=== PATIENT | female | born 2000 | race Caucasian/White ===

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

== ENCOUNTER 2024-03-04 04:37 | Inpatient (IN) | payer OTHER ==
[~2024-03-04] VITALS: Ht 157.5 cm; Wt 85.4 kg
[~2024-03-04 04:37] MED LIST: ESCI20TA87 PO
[2024-03-04 05:06] LABS: BASOPHILS % (AUTO) 0.6 % (0.0-2.0); EOSINOPHILS % (AUTO) 0.4 % (1.0-6.0); HEMATOCRIT 42.2 % (36-46); LYMPHOCYTES % (AUTO) 18.4 % (22.0-44.0); MEAN CORPUSCULAR HEMOGLOBIN 28.7 pg (26.0-34.0); MEAN CORPUSCULAR HGB CONC 33.2 G/dL (31.0-37.0); MEAN CORPUSCULAR VOLUME 86 fL (80-100); MONOCYTES # (AUTO) 0.7 K/uL (0.1-1.0); NEUTROPHILS # (AUTO) 8.2 K/uL (1.8-7.7); NEUTROPHILS % (AUTO) 74.6 % (40.0-70.0); PLATELET COUNT (AUTO) 370 K/uL (150-450); RED BLOOD CELL COUNT(AUTO) 4.88 MIL/uL (4.00-5.20); RED CELL DISTRIBUTION WIDTH 14.1 % (11.5-14.5)
[2024-03-04 05:17] LABS: SALICYLATE 1.4 mg/dL (2.8-20.0)
[2024-03-04 05:24] LABS: ALCOHOL, BLOOD (SERUM) 212 mg/dL (0-10)
[2024-03-04 05:39] LABS: ANION GAP 14 mmol/L (8-16); CALCIUM, TOTAL 8.9 mg/dL (8.8-10.5); CARBON DIOXIDE 23 mmol/L (22-29); CHLORIDE 107 mmol/L (98-107); CREATININE 0.76 mg/dL (0.60-1.30); GLOMERULAR FILTR. RATE CALC > 60 mL/min (>60); GLUCOSE,RANDOM 131 mg/dL (70-110); POTASSIUM 3.4 mmol/L (3.5-5.1); SODIUM SERUM 144 mmol/L (136-145); UREA NITROGEN, BLOOD 8 mg/dL (7-18)
[2024-03-04 05:54] LABS: ACETAMINOPHEN < 2 mcg/mL (10-30)
[2024-03-04] MEDS: POTASSIUM CHLORIDE 20 MEQ ER TABLET PO ONE (06:01)
[2024-03-04 07:12] LABS: COVID AG,FIA SOURCE NASAL SWAB
[2024-03-04 07:29] LABS: SARS-COV2 (COVID) ANTIGEN,FIA Negative (Negative)
[2024-03-04] MEDS ORDERED: LORazepam 2 MG TABLET PO PRN (09:15)
[2024-03-04] MEDS ORDERED: ChlordiazePOXIDE HCL 25 MG CAPSULE PO PRN (16:45)
[2024-03-04 16:46] VITALS: BP 91/54; PULSE 78; RESP 18; TEMP 98; O2SAT 99
[2024-03-04 19:46] VITALS: BP 98/65; PULSE 81; RESP 18; TEMP 98.1; O2SAT 100
[2024-03-04] MEDS: QUEtiapine FUMARATE 100 MG TABLET PO PRN (21:45)
[2024-03-04] MEDS: ZOLPIDEM TARTRATE 10 MG TABLET PO PRN (21:45)
[2024-03-04 21:56] VITALS: RESP 18
[2024-03-04 23:46] VITALS: BP 105/60; PULSE 80; RESP 18; TEMP 97.8; O2SAT 99
[2024-03-05 03:46] VITALS: BP_SYST 101; BP_SYST 121; BP_DIAS 62; BP_DIAS 64; PULSE 82; PULSE 84; RESP 18; TEMP 97.5; TEMP 98.1; O2SAT 98
[2024-03-05] MEDS ORDERED: GuaiFENesin/D-METHORPHAN [SUGAR-FREE] 200-20MG/10 ML SYRUP UDCUP PO PRN (07:00)
[2024-03-05] MEDS ORDERED: MAG HYDROX/ALUMINUM HYD/SIMETH ES 30 ML SUSPENSION UDCUP PO PRN (07:00)
[2024-03-05] MEDS ORDERED: ChlordiazePOXIDE HCL 25 MG CAPSULE PO PRN ×2 (07:00→18:30)
[2024-03-05] MEDS ORDERED: CloNIDine HCL 0.1 MG TABLET PO PRN (07:00)
[2024-03-05] MEDS ORDERED: ACETAMINOPHEN 325 MG TABLET PO PRN (07:00)
[2024-03-05] MEDS ORDERED: PETROLATUM,WHITE 28 GM JELLY TP PRN (07:00)
[2024-03-05] MEDS ORDERED: ONDANSETRON HCL 4 MG TABLET PO PRN (07:00)
[2024-03-05] MEDS ORDERED: LOPERAMIDE HCL 2 MG CAPSULE PO PRN (07:00)
[2024-03-05] MEDS ORDERED: DOCUSATE SODIUM 100 MG CAPSULE PO PRN (07:00)
[2024-03-05] MEDS ORDERED: MAGNESIUM HYDROXIDE SUSPENSION 30 ML UDCUP PO PRN (07:00)
[2024-03-05] MEDS ORDERED: ALBUTEROL SULFATE HFA 90 MCG/PUFF 8 GM INHALER IH PRN (07:00)
[2024-03-05] MEDS ORDERED: IBUPROFEN 400 MG TABLET PO PRN (07:00)
[2024-03-05 08:05] VITALS: BP 123/72; PULSE 83; RESP 17; TEMP 98.4
[2024-03-05] MEDS: ESCITALOPRAM OXALATE 10 MG TABLET PO SCH (08:40)
[2024-03-05] MEDS: ChlordiazePOXIDE HCL 25 MG CAPSULE PO SCH (08:40)
[2024-03-05] MEDS: NICOTINE 14 MG/24 HOUR PATCH TD PRN (12:19)
[2024-03-05 18:58] LABS: APPEARANCE,URINE CLEAR (CLEAR); BILIRUBIN,URINE NEGATIVE (NEGATIVE); COLOR,URINE COLORLESS (YELLOW); GLUCOSE, URINE (UA) NEGATIVE (NEGATIVE); KETONES,URINE NEGATIVE (NEGATIVE); LEUKOCYTE ESTERASE ,URINE NEGATIVE (NEGATIVE); NITRATE,URINE NEGATIVE (NEGATIVE); OCCULT BLOOD,URINE NEGATIVE (NEGATIVE); PROTEIN,URINE NEGATIVE (NEGATIVE); SPECIFIC GRAVITIY, URINE 1.004 (1.003-1.030); UROBILINOGEN,URINE <=1.0 mg/dL (<=1.0)
[2024-03-05 19:04] LABS: AMPHET/METH SCREEN,URINE NEGATIVE (NEGATIVE); BARBITURATE SCREEN, URINE NEGATIVE (NEGATIVE); BENZODIAZEPINES SCREEN,URINE NEGATIVE (NEGATIVE); CANNABINOID SCREEN,URINE NEGATIVE (NEGATIVE); COCAINE SCREEN,URINE NEGATIVE (NEGATIVE); METHADONE SCREEN, URINE NEGATIVE (NEGATIVE); OPIATE SCREEN,URINE NEGATIVE (NEGATIVE); PHENCYCLIDINE SCREEN,URINE NEGATIVE (NEGATIVE)
[2024-03-05 19:06] LABS: ALCOHOL, URINE DRUG SCREEN NEGATIVE (NEGATIVE)
[2024-03-05 20:00] VITALS: BP 128/70; PULSE 70; RESP 18; TEMP 98; O2SAT 98
[2024-03-05 20:04] VITALS: BP 121/74; PULSE 18; RESP 18; TEMP 97.9
[2024-03-05 22:37] VITALS: BP 121/74; PULSE 72; RESP 18; TEMP 97.9; O2SAT 97
[2024-03-06 02:00] VITALS: BP 130/74; PULSE 70; RESP 18; TEMP 97.8; O2SAT 98
[2024-03-06] MEDS: NICOTINE 21 MG/24 HOUR PATCH TD PRN (05:56)
[2024-03-06 06:00] VITALS: BP 128/70; PULSE 80; RESP 18; TEMP 97.6; O2SAT 97
[2024-03-06 06:28] LABS: HEMOGLOBIN A1C 5.3 % (3.8-5.6)
[2024-03-06 06:46] LABS: THYROID STIMULATING HORMONE 3.19 uIU/mL (0.36-3.74)
[2024-03-06 08:09] LABS: CHOL/HDL RATIO 3.7 (3.9-5.7)
[2024-03-06 09:40] VITALS: BP 110/60; PULSE 80; RESP 16; TEMP 98.7
[2024-03-06 09:41] VITALS: BP 110/60; PULSE 80; RESP 16; TEMP 98.7; O2SAT 98
[2024-03-07] MEDS ORDERED: ChlordiazePOXIDE HCL 10 MG CAPSULE PO PRN (07:00)
[2024-03-07] MEDS ORDERED: ChlordiazePOXIDE HCL 10 MG CAPSULE PO SCH (09:00)
[2024-03-08] MEDS ORDERED: ChlordiazePOXIDE HCL 10 MG CAPSULE PO PRN (07:00)
== END 2024-03-06 19:16 | disposition home or self-care (01) | DRG 885 ==
LOC: EMS 04:38 → 3EI 14:35
PROVIDERS: ADMIT Psychiatry & Neurology Child & Adolescent Psychiatry; ATTEND Psychiatry & Neurology Child & Adolescent Psychiatry
DX: F33.2 Major depressive disorder, recurrent severe without psychotic features (principal); F10.139 Alcohol abuse with withdrawal, unspecified; R45.851 Suicidal ideations; E66.9 Obesity, unspecified; E87.6 Hypokalemia; Z20.822 Contact with and (suspected) exposure to COVID-19; F41.9 Anxiety disorder, unspecified; Y90.9 Presence of alcohol in blood, level not specified; F90.9 Attention-deficit hyperactivity disorder, unspecified type; T46.5X1A Poisoning by other antihypertensive drugs, accidental (unintentional), initial encounter; Y92.89 Other specified places as the place of occurrence of the external cause; Z88.1 Allergy status to other antibiotic agents; Z68.34 Body mass index [BMI] 34.0-34.9, adult
CPT/HCPCS: 80048; 80061; 80307; 81003; 83036; 84132; 84443; 84703; 85025; 93005; 99285; G0480; G0481

== ENCOUNTER 2024-03-17 06:06 | Inpatient (IN) | payer OTHER, MEDICAID ==
[~2024-03-17] VITALS: Ht 157.5 cm; Wt 84.9 kg
[2024-03-17] MEDS: LORazepam 1 MG TABLET PO ONE (06:57)
[2024-03-17 07:29] LABS: BASOPHILS % (AUTO) 0.8 % (0.0-2.0); EOSINOPHILS % (AUTO) 0.4 % (1.0-6.0); HEMATOCRIT 40.7 % (36-46); HEMOGLOBIN 13.7 g/dL (12.0-16.0); LYMPHOCYTES # (AUTO) 1.7 K/uL (1.0-4.8); LYMPHOCYTES % (AUTO) 16.4 % (22.0-44.0); MEAN CORPUSCULAR HEMOGLOBIN 28.8 pg (26.0-34.0); MEAN CORPUSCULAR HGB CONC 33.5 G/dL (31.0-37.0); MEAN CORPUSCULAR VOLUME 86 fL (80-100); MONOCYTES # (AUTO) 0.7 K/uL (0.1-1.0); NEUTROPHILS # (AUTO) 7.6 K/uL (1.8-7.7); NEUTROPHILS % (AUTO) 75.4 % (40.0-70.0); PLATELET COUNT (AUTO) 400 K/uL (150-450); RED BLOOD CELL COUNT(AUTO) 4.73 MIL/uL (4.00-5.20); RED CELL DISTRIBUTION WIDTH 13.9 % (11.5-14.5); WHITE BLOOD COUNT (AUTO) 10.2 K/uL (4.5-11.0)
[2024-03-17 07:34] LABS: COVID AG,FIA SOURCE NASAL SWAB
[2024-03-17 07:37] LABS: ANION GAP 16 mmol/L (8-16); CALCIUM, TOTAL 8.9 mg/dL (8.8-10.5); CARBON DIOXIDE 20 mmol/L (22-29); CHLORIDE 104 mmol/L (98-107); CREATININE 0.93 mg/dL (0.60-1.30); GLOMERULAR FILTR. RATE CALC > 60 mL/min (>60); GLUCOSE,RANDOM 107 mg/dL (70-110); POTASSIUM 3.6 mmol/L (3.5-5.1); SODIUM SERUM 140 mmol/L (136-145); UREA NITROGEN, BLOOD 7 mg/dL (7-18)
[2024-03-17 07:49] LABS: ALANINE AMINOTRANSFERASE 26 U/L (12-78); ALKALINE PHOSPHATASE 86 U/L (46-116); ASPARTATE AMINOTRANSFERASE 20 U/L (15-37); BILIRUBIN,TOTAL 0.2 mg/dL (0.1-1.0); TOTAL PROTEIN, SERUM 8.2 g/dL (6.4-8.2)
[2024-03-17 07:51] LABS: ALCOHOL, BLOOD (SERUM) 94 mg/dL (0-10)
[2024-03-17 08:06] LABS: SARS-COV2 (COVID) ANTIGEN,FIA Negative (Negative)
[2024-03-17 08:32] LABS: ALCOHOL, URINE DRUG SCREEN POSITIVE (NEGATIVE); AMPHET/METH SCREEN,URINE NEGATIVE (NEGATIVE); BARBITURATE SCREEN, URINE NEGATIVE (NEGATIVE); BENZODIAZEPINES SCREEN,URINE NEGATIVE (NEGATIVE); CANNABINOID SCREEN,URINE NEGATIVE (NEGATIVE); COCAINE SCREEN,URINE NEGATIVE (NEGATIVE); METHADONE SCREEN, URINE NEGATIVE (NEGATIVE); OPIATE SCREEN,URINE NEGATIVE (NEGATIVE); PHENCYCLIDINE SCREEN,URINE NEGATIVE (NEGATIVE)
[2024-03-17 13:35] VITALS: BP 104/62; PULSE 99; RESP 16; TEMP 97.7; O2SAT 100
[2024-03-17] MEDS: LORazepam 2 MG TABLET PO PRN (16:14)
[2024-03-17] MEDS: HALOPERIDOL 5 MG TABLET PO PRN (16:14)
[2024-03-17] MEDS: TERBINAFINE HCL 1% 30 GM CREAM TP SCH (17:00)
[2024-03-17 20:25] VITALS: BP 130/75; PULSE 100; RESP 19; TEMP 97.5; O2SAT 100
[2024-03-17] MEDS: ZOLPIDEM TARTRATE 10 MG TABLET PO PRN (22:17)
[2024-03-18] MEDS ORDERED: MAG HYDROX/ALUMINUM HYD/SIMETH ES 30 ML SUSPENSION UDCUP PO PRN (06:15)
[2024-03-18] MEDS ORDERED: LOPERAMIDE HCL 2 MG CAPSULE PO PRN (06:15)
[2024-03-18] MEDS ORDERED: IBUPROFEN 600 MG TABLET PO PRN (06:15)
[2024-03-18] MEDS ORDERED: PETROLATUM,WHITE 28 GM JELLY TP PRN (06:15)
[2024-03-18] MEDS ORDERED: DOCUSATE SODIUM 100 MG CAPSULE PO PRN (06:15)
[2024-03-18] MEDS ORDERED: OMEPRAZOLE 20 MG CAPSULE PO PRN (06:15)
[2024-03-18] MEDS ORDERED: ALBUTEROL SULFATE HFA 90 MCG/PUFF 8 GM INHALER IH PRN (06:15)
[2024-03-18] MEDS ORDERED: CloNIDine HCL 0.1 MG TABLET PO PRN (06:15)
[2024-03-18] MEDS ORDERED: ONDANSETRON HCL 4 MG TABLET PO PRN (06:15)
[2024-03-18] MEDS ORDERED: ACETAMINOPHEN 325 MG TABLET PO PRN (06:15)
[2024-03-18] MEDS ORDERED: MAGNESIUM HYDROXIDE SUSPENSION 30 ML UDCUP PO PRN (06:15)
[2024-03-18] MEDS ORDERED: BACITRACIN 28 GM OINTMENT TP PRN (06:15)
[2024-03-18 08:20] VITALS: RESP 18
[2024-03-18 21:24] VITALS: BP 139/88; PULSE 100; RESP 18; TEMP 98.1; O2SAT 98
[2024-03-18] MEDS: BENZOCAINE/MENTHOL LOZENGE PO PRN (23:59)
[2024-03-19 08:19] VITALS: BP 104/71; PULSE 81; RESP 16; TEMP 98.3; O2SAT 99
[2024-03-19] MEDS: ESCITALOPRAM OXALATE 10 MG TABLET PO SCH (09:30)
[2024-03-19] MEDS: NICOTINE POLACRILEX 2 MG LOZENGE PO PRN (14:48)
[2024-03-20 08:20] VITALS: BP 112/66; PULSE 79; RESP 16; TEMP 97.6; O2SAT 98
[2024-03-20] MEDS ORDERED: ESCI-8 PO (11:47)
== END 2024-03-20 12:15 | disposition home or self-care (01) | DRG 885 ==
LOC: EMS 06:07 → B3A 11:58
PROVIDERS: ADMIT Psychiatry & Neurology Child & Adolescent Psychiatry; ATTEND Psychiatry & Neurology Child & Adolescent Psychiatry
PROC: GZHZZZZ Group Psychotherapy (ICD-10-PCS; principal; 2024-03-18)
DX: F33.9 Major depressive disorder, recurrent, unspecified (principal); F41.9 Anxiety disorder, unspecified; F90.9 Attention-deficit hyperactivity disorder, unspecified type; K59.00 Constipation, unspecified; E66.9 Obesity, unspecified; Z20.822 Contact with and (suspected) exposure to COVID-19; Z68.34 Body mass index [BMI] 34.0-34.9, adult; G47.00 Insomnia, unspecified; B35.3 Tinea pedis; S61.511A Laceration without foreign body of right wrist, initial encounter; X78.8XXA Intentional self-harm by other sharp object, initial encounter; F10.90 Alcohol use, unspecified, uncomplicated; Y90.9 Presence of alcohol in blood, level not specified; S61.512A Laceration without foreign body of left wrist, initial encounter; Y93.89 Activity, other specified; Y92.89 Other specified places as the place of occurrence of the external cause; Y99.8 Other external cause status
CPT/HCPCS: 80053; 80307; 85025; 87081; 99285; G0480